=== PATIENT | male | born 1945 | race Native Hawaiian/Other Pacific Islander ===

== ENCOUNTER 2020-08-09 08:27 | Outpatient (CLI) | payer OTHER, MEDICARE | END 2020-08-09 19:08 | disposition home or self-care (01) | LOC: US 08:27 | PROVIDERS: ATTEND Internal Medicine Cardiovascular Disease | DX: I73.9 Peripheral vascular disease, unspecified (principal); R09.89 Other specified symptoms and signs involving the circulatory and respiratory systems; I48.91 Unspecified atrial fibrillation ==